=== PATIENT | male | born 1995 | race Asian ===

== ENCOUNTER 2016-08-15 17:47 | Emergency (ER) | payer BC ==
[2016-08-15 18:27] VITALS: BP 122/71
[2016-08-15] MEDS ORDERED: Ketorolac INJ* 60 MG/2 ML VIAL IM ONE (19:32)
[2016-08-15] MEDS ORDERED: Cyclobenzaprine TAB* 10 MG PO ONE (19:32)
--- NOTE | 2016-08-15 20:21 | ED ---
Back Pain - HPI Summary HPI Summary: Patient presents with two days of non-traumatic low back pain. He had done a lot of sitting recently due to exams, and this is when his pain is the worst. He feels better standing and laying down is painful as well. He denies previous injury or back pain. No incontinence of urine or stool, N/T or difficulty walking. - History of Current Complaint Chief Complaint: EDBackInjuryPain Stated Complaint: BACK PAIN Time Seen by Provider: 08/15/16 19:00 Hx Obtained From: Patient Onset/Duration: Gradual Onset, Lasting Days - 2, Still Present Onset/Duration: Atraumatic, Still Present Timing: Constant Back Pain Location: Is Discrete @ - low back Severity Initially: Moderate Severity Currently: Moderate Pain Intensity: 5 Character: Aching, Spasmodic Aggravating Symptom(s): Movement Alleviating Symptom(s): Position Associated Signs And Symptoms: Positive: Negative PMH/Surg Hx/FS Hx/Imm Hx Previously Healthy: Yes Infectious Disease History: Yes Infectious Disease History: Denies: Traveled Outside the [place] in Last 30 Days - Family History Known Family History: Positive: None - Social History Occupation: Student Lives: Alone Alcohol Use: None Substance Use Type: Reports: None Smoking Status (MU): Never Smoked Tobacco Review of Systems Positive: Myalgia. Negative: Decreased ROM, Edema Negative: Bruising Negative: Paresthesia, Numbness All Other Systems Reviewed And Are Negative: Yes Physical Exam Triage Information Reviewed: Yes Vital Signs On Initial Exam: Initial Vitals Temp Pulse Resp BP Pulse Ox 99.8 F 97 16 122/71 100 08/15/16 18:24 08/15/16 18:24 08/15/16 18:24 08/15/16 18:24 08/15/16 18:24 Vital Signs Reviewed: Yes Appearance: Positive: Well-Appearing, No Pain Distress, Well-Nourished Skin: Positive: Warm, Skin Color Reflects Adequate Perfusion, Dry, Soft Head/Face: Positive: Normal Head/Face Inspection Eyes: Positive: EOMI, NATO, Conjunctiva Clear ENT: Positive: Hearing grossly normal Respiratory/Lung Sounds: Positive: Breath Sounds Present Cardiovascular: Positive: RRR Musculoskeletal: Positive: Strength/ROM Intact - patient moves easily from position to position; +SLR on right, Pain @ - TTP bilateral lumbar spine. Negative: Edema Left, Edema Right Neurological: Positive: Sensory/Motor Intact, Alert, Oriented to Person Place, Time, NV Bundle Intact Distally, Normal Gait Psychiatric: Positive: Affect/Mood Appropriate AVPU Assessment: Alert Diagnostics - Vital Signs Vital Signs Temp Pulse Resp BP Pulse Ox 08/15/16 19:32 99.8 F 97 16 122/71 100 08/15/16 18:24 99.8 F 97 16 122/71 100 - Laboratory Lab Statement: Any lab studies that have been ordered have been reviewed, and results considered in the medical decision making process. Back Pain Course/Dx - Diagnoses Differential Diagnosis/HQI/PQRI: Positive: Arthritis, Cauda Equina Syndrome, Herniated Disc, Strain, Sprain Provider Diagnoses: Low back pain Discharge - Discharge Plan Condition: Stable Disposition: HOME Patient Education Materials: Acute Low Back Pain (ED) Referrals: [facility] [Outside] No Primary Care Phys,NOPCP [Primary Care Provider] - Additional Instructions: Begin using 600mg of ibuprofen three times daily with meals tomorrow at dinner for the next 3 days. Rest your back and apply heat to decrease pain. Follow-up with [facility] if symptoms persist. Return to the emergency department if symptoms worsen.
== END 2016-08-15 20:15 | disposition home or self-care (01) ==
LOC: ED 17:47
DX: M54.5 Low back pain (principal)
CPT/HCPCS: 96372; 99281; A9270-GY; J1885